=== PATIENT | female | born 2000 | race Caucasian/White ===

== ENCOUNTER 2025-08-09 12:14 | Emergency (ER) | payer OTHER, SELFPAY ==
[2025-08-09 12:16] VITALS: BP 166/99
--- NOTE | 2025-08-09 12:56 | ED.GENMED ---
History of Present Illness
General
Chief Complaint: Musculo-Skeletal Complaint
Time Seen by Provider: 08/09/25 12:29
History of Present Illness
History of Present Illness:
25-year-old female presents the emergency department for evaluation of severe upper back/lower neck pain for the past 2 days. States she recently resumed gym workouts after dealing with a low back injury, she performed several upper back exercises
including rows and noted mild pain however awoke today with severe symptoms. She has difficulty moving head and neck without severe pain. She also reports that she feels weak and tingly in the hands and is dropping objects on occasion. No chest
pain or dyspnea. Has taken NSAIDs and tizanidine without relief
Review of Systems
Review of Systems
Allergies reviewed?: Yes
All Other Systems: ROS reviewed and negative except as documented in HPI and ROS
Phy Exam
Physical Exam
Physical Exam:
GEN: Well appearing, NAD, WDWN
HEENT: Oral mucosa moist, no scleral icterus
Cardiac: Regular rate
Lung: No respiratory distress, no tachypnea
MSK: No gross deformity or injuries. No midline cervical spine tenderness, exquisitely tender to palpation of the upper thoracic spine with no palpable deformity, cervical spine range of motion limited by pain
Skin: Good color, no pallor or jaundice, no rashes
Neuro: AO x3, moves all extremities freely, bilateral upper extremity strength is intact in all page and symmetric
Psych: Calm, cooperative
Course
Orders/Labs/Results
Orders:
Orders
08/09/25 12:49
CT Thoracic Spine W/o Iv Contr Urgent
Comment:
Reason For Exam: upper back/scapular pain/BUE paresthesia
Diazepam [Valium] 5 mg PO NOW STA
Ketorolac [Toradol] 30 mg IM NOW STA
08/09/25 13:56
Ondansetron Orally Disint [Zofran Odt (Orally Disintegrating)] 4 mg .ROUTE .[facility]
08/09/25 13:58
Ondansetron Orally Disint [Zofran Odt (Orally Disintegrating)] 4 mg PO NOW STA
Vital Signs
Initial and Last Documented VS:
Initial Vital Signs
Temp Pulse Resp BP Pulse Ox
98.2 F 102 16 166/99 100
08/09/25 12:16 08/09/25 12:16 08/09/25 12:16 08/09/25 12:16 08/09/25 12:16
Last Documented Vital Signs
Temp Pulse Resp BP Pulse Ox
98.2 F 102 16 166/99 100
08/09/25 12:16 08/09/25 12:16 08/09/25 12:16 08/09/25 12:16 08/09/25 12:56
MDM/Problems Addressed
MDM/Problems Addressed:
Symptoms are most likely explained by muscle spasm. The patient was quite adamant to receive imaging of the thoracic spine, however this did not provide any significant diagnostic benefit, likely muscular however cannot rule out discogenic etiology
given the degenerative changes in her T-spine. Supportive treatment discussed, recommend outpatient PT
*Pulse Oximetry
SaO2: 100
Oxygen Mode of Delivery: Room air
Patient hypoxic: no
*Critical Care Note
Total Time (30-74mins, 75-104mins- exclusive of procedures): Not Applicable
ED Attending Note
-
Portions of this chart may have been created with voice recognition software.� Occasional wrong word or��sound alike� substitutions may have occurred due to the inherent limitations of voice recognition software.
Discharge Plan
Departure
Patient Disposition: Home (Routine Discharge)
Date of Disposition: 08/09/25
Time of Disposition: 15:39
Patient with high blood pressure during this ER visit?: No
Discharge Problem:
Thoracic back sprain
Instructions: Upper Back Pain ED
Prescriptions:
New
celecoxib 200 mg capsule
200 mg PO BID Qty: 20 0RF
diazepam [Valium] 5 mg tablet
5 mg PO TID PRN (Reason: muscle spasm) Qty: 15 0RF
Referrals:
Darrell Haley MD [Family Provider, [facility]]
Discharge Date and Time
Print Language: ISRAELI
[2025-08-09] MEDS: TORADOL 30 MG IM (12:57)
[2025-08-09] MEDS: VALIUM 5 MG PO (12:58)
[2025-08-09] MEDS: ZOFRAN ODT (ORALLY DISINTEGRATING) 4 MG PO (13:58)
[2025-08-09 16:00] VITALS: BP 128/79
== END 2025-08-09 16:04 | disposition home or self-care (01) ==
LOC: EMR 12:14
PROVIDERS: EMERGENCY PHYSICIAN Emergency Medicine; FAMILY PHYSICIAN Family Medicine
DX: S23.3XXA Sprain of ligaments of thoracic spine, initial encounter (principal); X58.XXXA Exposure to other specified factors, initial encounter; M47.814 Spondylosis without myelopathy or radiculopathy, thoracic region
CPT/HCPCS: 99284; 96372; 72128